=== PATIENT | male | born 1980 | race Caucasian/White ===

== ENCOUNTER 2017-10-13 08:39 | Outpatient (CLI) | payer OTHER ==
--- NOTE | 2017-10-13 11:04 | MRI Report ---
EXAM: MRI BRAIN WITHOUT AND WITH CONTRAST EXAM DATE: 10/13/2017 09:52 AM. CLINICAL HISTORY: Numbness of the right upper lip, face, head, teeth and gums for 3 months. Multiple sclerosis protocol requested. COMPARISON: None. TECHNIQUE: Multiplanar, multisequence T1-weighted and fluid-sensitive MR sequences of the brain were performed. Sequences optimized for white matter evaluation. Other: None. IV Contrast: 10 mL Gadavist. FINDINGS: Brain Volume: Normal for age. Parenchyma: No acute hemorrhage or stroke. No intracranial enhancing or space-occupying mass. Solitary punctate subcortical white matter T2 hyperintensity in the inferior lateral left frontal lob e, this measures about 2 mm in diameter, reference image 8 of series 801. Cerebral white matter other watson has an unremarkable appearance. No focal posterior fossa plaque-like white matter T2 hyperintens ity. No abnormal white matter enhancement. No mass effect, midline shift or abnormal subdural fluid collection. Ventricles/Cisterns: No hydrocephalus. No abnormal extra-axial fluid collection or hemorrhage. Sinuses: Mild pansinus mucosal thickening. No air-fluid level. Small inferior right maxillary sinus r etention cyst. Clear mastoids. Bones: Round 1 cm in diameter nodule of the bone of the upper lateral roof of the right orbit with a thin hypointense sclerotic margin. This nodule is heterogeneously T2 hyperintense centrally and appea rs to enhance. Other: Soft tissue fullness in the nasopharynx, probably adenoid hypertrophy possibly with intermixed retention cyst. IMPRESSION: 1. No acute intracranial abnormality or enhancing mass. 2. Single punctate nonspecific focus of left frontal lobe white matter T2 hyperintensity, intracrania l white matter structures otherwise appear unremarkable. 3. Nonspecific enhancing 1 cm intraosseous nodule in the frontal bone in the right lateral orbital ro of. Thin peripheral hypointensity suggests a sclerotic margin which would imply a nonaggressive or be nign process but this is nonspecific. Additional characterization with focused thin section CT may be helpful for additional evaluation, otherwise MRI could be used in follow-up to determine stability i f no prior imaging is available for comparison. 4. Mild pansinus mucosal thickening. [facility] Referring Provider Line: [phone] SITE ID: [id number]
== END 2017-10-13 08:40 | disposition home or self-care (01) ==
LOC: DI 08:39
DX: R20.2 Paresthesia of skin (principal); M89.9 Disorder of bone, unspecified
CPT/HCPCS: 70553; A9585

== ENCOUNTER 2018-02-06 18:24 | Emergency (ER) | payer OTHER ==
--- NOTE | 2018-02-06 18:39 | ED Physician Documentation ---
PD HPI DYSPNEA - Stated complaint Stated Complaint: SOA/TIGHTCHEST - Chief complaint Chief Complaint: Cardiac - History obtained from History obtained from: Patient - History of Present Illness Timing - onset: How many days ago (several) Timing - onset during: Light activity Timing - duration: Days Timing - details: Gradual onset, Still present, Waxing and waning Inciting event(s): URI (has feeling of general illness with fatigue, cough, aches, stomach pains and diarrhea.) Similar symptoms before: Has not had sx before Recently seen: Not recently seen Review of Systems Constitutional: reports: Fever, Chills Nose: reports: Congestion. denies: Rhinorrhea / runny nose Throat: reports: Sore throat Cardiac: denies: Chest pain / pressure, Palpitations Respiratory: reports: Dyspnea. denies: Wheezing GI: reports: Abdominal Pain (lower abd mostly left), Nausea, Diarrhea (mild). denies: Vomiting, Constipation : denies: Dysuria, Frequency Skin: denies: Rash Musculoskeletal: denies: Neck pain, Back pain Neurologic: reports: Generalized weakness, Near syncope. denies: Focal weakness , Numbness, Syncope PD PAST MEDICAL HISTORY - Past Medical History Cardiovascular: None Respiratory: None Neuro: None GI: Diverticulitis - Present Medications Home Medications: Ambulatory Orders Medication Instructions Recorded Confirmed Amlodipine Besylate/Benazepril 1 each PO 02/06/18 [Lotrel 10-20 mg Capsule] Atenolol 25 mg PO 02/06/18 Citalopram [CeleXA] 40 mg PO DAILY 02/06/18 02/06/18 Gabapentin 600 mg PO 02/06/18 Loperamide [Imodium] 2 mg PO QID PRN #16 capsule 02/06/18 Ondansetron Odt [Zofran] 4 mg TL Q6H PRN #15 tablet 02/06/18 Oxycodone HCl/Acetaminophen 1 each PO 02/06/18 02/06/18 [Percocet 7.5-325 mg Tablet] - Allergies Allergies/Adverse Reactions: Allergies Allergy/AdvReac Type Severity Reaction Status Date / Time No Known Drug Allergies Allergy Verified 02/06/18 18:31 PD ED PE NORMAL - Vitals Vital signs reviewed: Yes - General General: Alert and oriented X 3, Well developed/nourished - HEENT HEENT: Ears normal, Moist mucous membranes, Pharynx benign - Neck Neck: Supple, no meningeal sign, No bony TTP, No adenopathy - Cardiac Cardiac: RRR, No murmur - Respiratory Respiratory: Clear bilaterally - Male Male : Deferred - Back Back: No CVA TTP - Derm Derm: Normal color, Warm and dry, No rash - Extremities Extremities: No deformity, No tenderness to palpate, Normal ROM s pain, No edema , No calf tenderness / cord - Neuro Neuro: Alert and oriented X 3, No motor deficit, Normal speech - Psych Psych: Normal mood, Normal affect Results - Vitals Vitals: Oxygen O2 Source Room air - Labs Labs: Laboratory Tests 02/06/18 02/06/18 02/06/18 18:45 18:45 18:45 WBC 9.8 RBC 4.91 Hgb 14.1 Hct 41.5 L MCV 84.5 MCH 28.7 MCHC 34.0 RDW 13.2 Plt Count 263 MPV 9.2 Neut # (Auto) 6.2 Lymph # (Auto) 2.6 [place] # (Auto) 0.6 Eos # (Auto) 0.3 Baso # (Auto) 0.1 Absolute Nucleated RBC 0.01 Nucleated RBC % 0.1 Sodium 139 Potassium 3.5 Chloride 100 L Carbon Dioxide 27 Anion Gap 12.0 BUN 11 Creatinine 0.9 Estimated GFR (MDRD) 94 Glucose 77 Calcium 9.7 Total Bilirubin 0.7 AST 26 ALT 59 Alkaline Phosphatase 45 Troponin I B-Natriuretic Peptide Total Protein 7.6 Albumin 4.6 Globulin 3.0 Albumin/Globulin Ratio 1.5 Lipase 33 Urine Color YELLOW Urine Clarity HAZY Urine pH 6.5 Ur Specific [place] 1.010 Urine Protein NEGATIVE Urine Glucose (UA) NEGATIVE Urine Ketones NEGATIVE Urine Occult Blood LARGE H Urine Nitrite NEGATIVE Urine Bilirubin NEGATIVE Urine Urobilinogen 0.2 (NORMAL) Ur Leukocyte Esterase NEGATIVE Urine RBC TNTC H Urine WBC 0-3 Ur Squamous Epith Cells NONE SEEN Urine Bacteria None Seen Ur Microscopic Review INDICATED Urine Culture Comments NOT INDICATED Influenza A (Rapid) Influenza B (Rapid) 02/06/18 02/06/18 02/06/18 18:45 18:45 19:20 WBC RBC Hgb Hct MCV MCH MCHC RDW Plt Count MPV Neut # (Auto) Lymph # (Auto) [place] # (Auto) Eos # (Auto) Baso # (Auto) Absolute Nucleated RBC Nucleated RBC % Sodium Potassium Chloride Carbon Dioxide Anion Gap BUN Creatinine Estimated GFR (MDRD) Glucose Calcium Total Bilirubin AST ALT Alkaline Phosphatase Troponin I < 0.04 B-Natriuretic Peptide 86 Total Protein Albumin Globulin Albumin/Globulin Ratio Lipase Urine Color Urine Clarity Urine pH Ur Specific [place] Urine Protein Urine Glucose (UA) Urine Ketones Urine Occult Blood Urine Nitrite Urine Bilirubin Urine Urobilinogen Ur Leukocyte Esterase Urine RBC Urine WBC Ur Squamous Epith Cells Urine Bacteria Ur Microscopic Review Urine Culture Comments Influenza A (Rapid) Negative Influenza B (Rapid) Negative PD MEDICAL DECISION MAKING - ED course Complexity details: reviewed results, re-evaluated patient, considered differential (has pain and tenderness in lower left abd concerning for diverticulitis. He has had that before. ), d/w patient Departure - Departure Disposition: 01 Home, Self Care Clinical Impression: Flu-like symptoms, Abdominal cramping in left lower quadrant Diarrhea Qualifiers: Diarrhea type: presumed infectious Qualified Code(s): R19.7 - Diarrhea, unspecified Condition: Stable Record reviewed to determine appropriate education?: Yes Follow-Up: ROSA ISELA CAM DO [Primary Care Provider] - Prescriptions: Loperamide [Imodium] 2 mg PO QID PRN #16 capsule PRN Reason: Diarrhea Ondansetron Odt [Zofran] 4 mg TL Q6H PRN #15 tablet PRN Reason: Nausea / Vomiting Comments: No focal signs of infection based on urine, CT scan and some blood tests. No signs of heart failure or heart problems based on EKG and some blood tests. It sounds like you have a flulike illness which is still possible and likely even though your flu test is negative. I would use some ondansetron if needed for nausea and Imodium for diarrhea. Tylenol or ibuprofen if needed for pains and aches. Add the hydrocodone if needed for pains tonight into tomorrow. I would anticipate improvement over the next few days. Discharge Date/Time: 02/06/18 21:20
[2018-02-06 18:56] LABS: BASOPHILS # (AUTO) 0.1 10^3/uL (0.0-0.1); BASOPHILS % (AUTO) 0.8 %; BILIRUBIN,URINE NEGATIVE (NEGATIVE); EOSINOPHILS # (AUTO) 0.3 10^3/uL (0.0-0.7); EOSINOPHILS % (AUTO) 3.3 %; GLUCOSE, URINE (UA) NEGATIVE (NEGATIVE); HGB - HEMOGLOBIN 14.1 g/dL (14.0-18.0); KETONES,URINE (UA) NEGATIVE (NEGATIVE); LEUKOCYTE ESTERASE, URINE NEGATIVE (NEGATIVE); LYMPHOCYTES # (AUTO) 2.6 10^3/uL (1.5-3.5); LYMPHOCYTES % (AUTO) 26.7 %; MEAN CORPUSCULAR HEMOGLOBIN 28.7 pg (27.0-31.0); MEAN CORPUSCULAR VOLUME 84.5 fL (80.0-94.0); MEAN PLATELET VOLUME 9.2 fL (7.4-11.4); MONOCYTES # (AUTO) 0.6 10^3/uL (0.0-1.0); MONOCYTES % (AUTO) 6.2 %; NEUTROPHILS # (AUTO) 6.2 10^3/uL (1.5-6.6); NITRITE,URINE NEGATIVE (NEGATIVE); OCCULT BLOOD,URINE LARGE (NEGATIVE); PH,URINE 6.5 PH (5.0-7.5); PLT - PLATELET COUNT 263 10^3/uL (130-450); PROTEIN,URINE NEGATIVE (NEGATIVE); RED BLOOD COUNT 4.91 10^6/uL (4.70-6.10); RED CELL DISTRIBUTION WIDTH 13.2 % (12.0-15.0); UROBILINOGEN,URINE 0.2 (NORMAL) E.U./dL (NORMAL); WHITE BLOOD COUNT 9.8 x10^3/uL (4.8-10.8)
[2018-02-06] MEDS ORDERED: ONDANSETRON 4 MG/2 ML VIAL IVP STA (18:58)
[2018-02-06] MEDS ORDERED: SODIUM CHLORIDE 0.9% 1,000 ML IV ONE ×2 (18:58)
[2018-02-06 18:59] LABS: CLARITY,URINE HAZY (CLEAR)
[2018-02-06 19:09] LABS: ALBUMIN 4.6 g/dL (3.2-5.5); ALBUMIN/GLOBULIN RATIO 1.5 (1.0-2.2); BILIRUBIN,TOTAL 0.7 mg/dL (0.2-1.0); CALCIUM 9.7 mg/dL (8.5-10.3); CREATININE 0.9 mg/dL (0.6-1.2); TOTAL PROTEIN 7.6 g/dL (6.7-8.2)
[2018-02-06 19:11] LABS: BACTERIA,URINE None Seen /HPF (None Seen); RBC,URINE TNTC /HPF (0-5); SQUAMOUS EPITHELIAL CELL,UR NONE SEEN (<= Few)
[2018-02-06] MEDS ORDERED: IOPAMIDOL-300 100 ML VIAL ONE (19:45)
[2018-02-06] MEDS ORDERED: IOPAMIDOL-300 100 ML VIAL IVP ONE (19:55)
--- NOTE | 2018-02-06 20:27 | CT Preliminary Report ---
Exam: CT ABDOMEN/PELVIS W/ IMPRESSION: 1. Normal appendix. 2. Mild colonic diverticulosis. No diverticulitis. No bowel obstruction. 3. Bilateral nonobstructing renal calculi. No obstructing calculi. No bladder calculi. Hydronephrosis . 4. Contracted gallbladder. No biliary ductal dilatation. [facility] SITE ID: [id number]
[2018-02-06] MEDS ORDERED: HYDROcod/ACET 5/325 Prepack 4 PO STA (20:55)
[2018-02-06] MEDS ORDERED: ONDANSETRON ODT 4 MG Prepack 2 TL PRN (20:55)
[2018-02-06] MEDS ORDERED: KETOROLAC 60 MG/2 ML VIAL IVP STA (20:55)
[2018-02-06] MEDS ORDERED: ACETAMINOPHEN 325 MG TABLET PO STA (20:55)
[2018-02-06] MEDS ORDERED: DIPHENOX/ATROPINE 2.5/0.025 MG TABLET PO STA (20:56)
[2018-02-06] MEDS ORDERED: DEXAMETHASONE 10 MG/ML VIAL IVP STA (20:57)
[2018-02-06 21:12] VITALS: BP 161/82
--- NOTE | 2018-02-06 21:19 | CT Report ---
EXAM: CT ABDOMEN AND PELVIS EXAM DATE: 02/06/2018 08:02 PM. CLINICAL HISTORY: Lower left abdominal cramping and diarrhea for days. COMPARISONS: None. TECHNIQUE: Routine helical CT imaging was performed through the abdomen and pelvis. IV contrast: 100M L ISOVUE 300. Enteric contrast: No. Reconstructions: Coronal and sagittal. In accordance with CT protocol optimization, one or more of the following dose reduction techniques w ere utilized for this exam: automated exposure control, adjustment of mA and/or KV based on patient s ize, or use of iterative reconstructive technique. FINDINGS: Lung Bases: Minimal subpleural bibasilar scar/atelectasis. Included portions of the heart is unremark able. Small hiatal hernia. There may be trace pleural effusions. Liver: Normal. No masses. Gallbladder/Bile Ducts: Markedly contracted gallbladder. No biliary ductal dilatation. Spleen: Normal. Pancreas: Normal. Adrenal Glands: Normal. Kidneys: Nonobstructing middle lower pole right renal calculi, the largest measuring 2 mm. Kidneys e nhance symmetrically. Nonobstructing 4 mm left renal calculus also present. No ureteral dilatation. N o ureteral calculi. Peritoneal Cavity/Bowel: Stomach is mildly distended and unremarkable. No small bowel wall thickening or evidence for obstruction. Small fatty umbilical hernia. Diverticula are seen in the colon, largel y the distal colon. No diverticulitis. Small to moderate volumes of stool is seen in the colon. No en larged retroperitoneal or mesenteric lymph nodes. The appendix is well visualized and normal. Pelvic Organs: No bladder calculi. Urinary bladder is mildly distended. Prostate gland and seminal ve sicles are unremarkable. No pelvic adenopathy . No free fluid. Vasculature: No aneurysms or other significant abnormality. Bones: Degenerative changes of the lower thoracic and lumbar spine for lumbar facet arthritis. No acu te osseous abnormalities. Mild degenerative changes of both hip joints. Bilateral L5 pars interarticu ricki defects with grade 1 anterolisthesis of L5 on S1. Other: None. IMPRESSION: 1. Normal appendix. 2. Mild colonic diverticulosis. No diverticulitis. No bowel obstruction. 3. Bilateral nonobstructing renal calculi. No obstructing calculi. No bladder calculi. No hydronephro sis. 4. Contracted gallbladder. No biliary ductal dilatation. [facility] Referring Provider Line: [phone] SITE ID: [id number]
== END 2018-02-06 21:20 | disposition home or self-care (01) ==
LOC: ED 18:24
DX: R50.9 Fever, unspecified (principal); R11.0 Nausea; R09.81 Nasal congestion; J02.9 Acute pharyngitis, unspecified; R06.00 Dyspnea, unspecified; R10.32 Left lower quadrant pain; R19.7 Diarrhea, unspecified
CPT/HCPCS: 36415; 74177; 80053; 81001; 83690; 83880; 84484; 85025; 87275; 87276; 93005; 96361; 96374; 96375; 99283; A9270; Q9967; 81003; 87086

== ENCOUNTER 2018-03-24 14:01 | Emergency (ER) | payer OTHER ==
[2018-03-24] MEDS ORDERED: SODIUM CHLORIDE 0.9% 1,000 ML IV ONE (16:47)
[2018-03-24] MEDS ORDERED: LORazepam 2 MG/ML VIAL IVP STA (16:47)
--- NOTE | 2018-03-24 16:47 | ED Physician Documentation ---
History of Present Illness - Stated complaint Stated Complaint: panick attack - Chief complaint Chief Complaint: General - Additonal information Additional information: 37-year-old male presents the emergency department with reports of anxiety. The patient has a history of ongoing anxiety and currently is on medications but in the past several days his symptoms have not been adequately controlled. No triggering factors. No relieving factors. The patient denies suicidal or homicidal ideations. Patient reports feeling generally weak, jittery and reports feeling palpitations/chest pain. These of the patient's typical symptoms. No other associated symptoms. The patient denies any acute changes in his medications or new fpoj-pce-gyhvaoh therapies. Review of Systems Constitutional: denies: Fever, Chills, Fatigue Eyes: denies: Decreased vision Ears: denies: Ear pain Nose: denies: Congestion Cardiac: reports: Chest pain / pressure, Palpitations Respiratory: denies: Dyspnea GI: denies: Abdominal Pain : denies: Dysuria Skin: denies: Rash Musculoskeletal: denies: Neck pain Neurologic: denies: Generalized weakness, Syncope Psychiatric: reports: Anxiety. denies: Suicidal, Homicidal Immunocompromised: denies: Chemotherapy PD PAST MEDICAL HISTORY - Past Medical History Cardiovascular: None Respiratory: None Neuro: None GI: Diverticulitis : Kidney stones Psych: Anxiety, Obsessive compulsive disorder Musculoskeletal: Chronic back pain - Past Surgical History Past Surgical History: Yes General: Appendectomy, Bowel surgery Ortho: ACL reconstruction - Present Medications Home Medications: Ambulatory Orders Medication Instructions Recorded Confirmed Amlodipine Besylate/Benazepril 1 each PO 02/06/18 [Lotrel 10-20 mg Capsule] Atenolol 25 mg PO 02/06/18 Citalopram [CeleXA] 40 mg PO DAILY 02/06/18 02/06/18 Gabapentin 600 mg PO 02/06/18 - Allergies Allergies/Adverse Reactions: Allergies Allergy/AdvReac Type Severity Reaction Status Date / Time No Known Drug Allergies Allergy Verified 03/24/18 14:10 - Social History Does the pt smoke?: No Smoking Status: Never smoker Does the pt drink ETOH?: No Does the pt have substance abuse?: No PD ED PE NORMAL - General General: Alert and oriented X 3 - HEENT HEENT: Atraumatic, PERRL, EOMI, Ears normal - Neck Neck: Supple, no meningeal sign - Cardiac Cardiac: RRR, No gallop - Respiratory Respiratory: No respiratory distress - Abdomen Abdomen: Normal bowel sounds, Non tender - Derm Derm: Normal color - Extremities Extremities: No deformity, Normal ROM s pain - Neuro Neuro: Alert and oriented X 3, barrel turner 2-12 intact, No motor deficit PD ED PE EXPANDED - Psych Psych: Anxious. No: Suicidal, Homicidal, Tearful, Withdrawn, Poor eye contact, Agitated, Combative, Manic Results - Vitals Vitals: Vital Signs - 24 hr 03/24/18 03/24/18 03/24/18 14:08 17:21 18:22 Temperature 36.3 C L 36.8 C Heart Rate 63 59 L Respiratory 22 16 19 Rate Blood Pressure 166/94 H 158/82 H 163/85 H O2 Saturation 99 96 100 Oxygen O2 Source Room air - EKG (time done) No standard instances Rate: Rate (enter#) (66 bpm) Rhythm: NSR Intervals: Normal LA, Prolonged QT QRS: Normal Ischemia: Normal ST segments - Labs Labs: Laboratory Tests 03/24/18 03/24/18 03/24/18 17:02 17:02 17:02 WBC 7.8 RBC 4.81 Hgb 14.0 Hct 41.9 L MCV 87.1 MCH 29.2 MCHC 33.5 RDW 13.5 Plt Count 255 MPV 9.3 Neut # (Auto) 5.3 Lymph # (Auto) 1.9 [place] # (Auto) 0.4 Eos # (Auto) 0.1 Baso # (Auto) 0.1 Absolute Nucleated RBC 0.00 Nucleated RBC % 0.0 Sodium 138 Potassium 4.3 Chloride 100 L Carbon Dioxide 28 Anion Gap 10.0 BUN 10 Creatinine 0.7 Estimated GFR (MDRD) 126 Glucose 85 Calcium 9.9 Magnesium 2.0 Total Bilirubin 0.7 AST 26 ALT 38 Alkaline Phosphatase 52 Troponin I < 0.04 Total Protein 7.4 Albumin 4.5 Globulin 2.9 Albumin/Globulin Ratio 1.6 Lipase 24 TSH 03/24/18 17:02 WBC RBC Hgb Hct MCV MCH MCHC RDW Plt Count MPV Neut # (Auto) Lymph # (Auto) [place] # (Auto) Eos # (Auto) Baso # (Auto) Absolute Nucleated RBC Nucleated RBC % Sodium Potassium Chloride Carbon Dioxide Anion Gap BUN Creatinine Estimated GFR (MDRD) Glucose Calcium Magnesium Total Bilirubin AST ALT Alkaline Phosphatase Troponin I Total Protein Albumin Globulin Albumin/Globulin Ratio Lipase TSH 1.15 PD MEDICAL DECISION MAKING - ED course ED course: The patient's workup does not reveal an acute medical cause for his symptoms. The patient appears appropriate for discharge home since he has no suicidal or homicidal ideations. The patient will follow up with his primary care physician for ongoing management of his anxiety. I discussed warning signs for decompensation and recommended returning to the emergency department immediately for worsening or any concerns. - Sepsis Event Vital Signs: Vital Signs - 24 hr 03/24/18 03/24/18 03/24/18 14:08 17:21 18:22 Temperature 36.3 C L 36.8 C Heart Rate 63 59 L Respiratory 22 16 19 Rate Blood Pressure 166/94 H 158/82 H 163/85 H O2 Saturation 99 96 100 Oxygen O2 Source Room air Departure - Departure Disposition: 01 Home, Self Care Clinical Impression: Anxiety Condition: Good Instructions: ED Anxiety Reaction Ch Follow-Up: ROSA ISELA CAM DO [Primary Care Provider] - Within 3 Days Comments: Please return for worsening symptoms or new concerns Discharge Date/Time: 03/24/18 18:28
[2018-03-24 17:21] LABS: BASOPHILS # (AUTO) 0.1 10^3/uL (0.0-0.1); BASOPHILS % (AUTO) 0.7 %; EOSINOPHILS # (AUTO) 0.1 10^3/uL (0.0-0.7); EOSINOPHILS % (AUTO) 1.9 %; LYMPHOCYTES # (AUTO) 1.9 10^3/uL (1.5-3.5); LYMPHOCYTES % (AUTO) 24.6 %; MEAN CORPUSCULAR HEMOGLOBIN 29.2 pg (27.0-31.0); MEAN CORPUSCULAR HGB CONC 33.5 g/dL (32.0-36.0); MEAN CORPUSCULAR VOLUME 87.1 fL (80.0-94.0); MEAN PLATELET VOLUME 9.3 fL (7.4-11.4); MONOCYTES # (AUTO) 0.4 10^3/uL (0.0-1.0); MONOCYTES % (AUTO) 4.8 %; NEUTROPHILS # (AUTO) 5.3 10^3/uL (1.5-6.6); PLT - PLATELET COUNT 255 10^3/uL (130-450); RED BLOOD COUNT 4.81 10^6/uL (4.70-6.10); RED CELL DISTRIBUTION WIDTH 13.5 % (12.0-15.0); WHITE BLOOD COUNT 7.8 x10^3/uL (4.8-10.8)
[2018-03-24 17:34] LABS: ALBUMIN 4.5 g/dL (3.2-5.5); ALBUMIN/GLOBULIN RATIO 1.6 (1.0-2.2); BILIRUBIN,TOTAL 0.7 mg/dL (0.2-1.0); CALCIUM 9.9 mg/dL (8.5-10.3); CREATININE 0.7 mg/dL (0.6-1.2); TOTAL PROTEIN 7.4 g/dL (6.7-8.2)
[2018-03-24] MEDS ORDERED: diazePAM 5 MG TABLET PO STA (18:10)
[2018-03-24 18:23] VITALS: BP 163/85
== END 2018-03-24 18:28 | disposition home or self-care (01) ==
LOC: ED 14:01
DX: F41.9 Anxiety disorder, unspecified (principal)
CPT/HCPCS: 36415; 80053; 83690; 83735; 84443; 84484; 85025; 93005; 96361; 96374; 99283; A9270; J2060

== ENCOUNTER 2018-11-01 09:59 | Emergency (ER) | payer OTHER ==
[2018-11-01] MEDS ORDERED: HYDROmorphone 1 MG/ML CARPUJECT IM STA (12:24)
--- NOTE | 2018-11-01 12:26 | ED Physician Documentation ---
PD HPI BACK PAIN - Stated complaint Stated Complaint: GLF/BACK PAIN - Chief complaint Chief Complaint: Back Pain - History obtained from History obtained from: Patient - History of Present Illness Timing - onset: Today (This is a 38-year-old gentleman with chronic back pain who receives an occasional prescription from his physician for Percocet. He slipped and fell the day and tweaks his back. Pain is in the same place as usual, mid to lower back and radiating to the right buttock without new sensory or motor weakness. No saddle anesthesia. He chronically has some sensory weakness in the right leg from a saphenous knee vein nerve graft.) Review of Systems Constitutional: denies: Fever, Chills Throat: denies: Dental pain / toothache, Sore throat Cardiac: denies: Chest pain / pressure, Palpitations Respiratory: denies: Dyspnea, Cough PD PAST MEDICAL HISTORY - Past Medical History Past Medical History: No Cardiovascular: None Respiratory: None Neuro: None GI: Diverticulitis : Kidney stones Psych: Anxiety, Obsessive compulsive disorder Musculoskeletal: Chronic back pain - Past Surgical History Past Surgical History: Yes General: Appendectomy, Bowel surgery Ortho: ACL reconstruction - Present Medications Home Medications: Ambulatory Orders Medication Instructions Recorded Confirmed Amlodipine Besylate/Benazepril 1 each PO 02/06/18 [Lotrel 10-20 mg Capsule] Atenolol 25 mg PO 02/06/18 Citalopram [CeleXA] 40 mg PO DAILY 02/06/18 02/06/18 Gabapentin 600 mg PO 02/06/18 Oxycodone HCl/Acetaminophen 1 each PO Q6H PRN #15 tablet 11/01/18 [Percocet 10-325 mg Tablet] - Allergies Allergies/Adverse Reactions: Allergies Allergy/AdvReac Type Severity Reaction Status Date / Time No Known Drug Allergies Allergy Verified 03/24/18 14:10 - Social History Does the pt smoke?: No Smoking Status: Never smoker Does the pt drink ETOH?: No Does the pt have substance abuse?: No PD ED PE NORMAL - Vitals Vital signs reviewed: Yes - General General: Alert and oriented X 3, Other (He winces with motion but is comfortable at rest) - Back Back: No spinal TTP - Extremities Extremities: Other (With the exception of some numbness on the lateral side of the lower right leg, he has intact sensation throughout the leg, normal flexion and extension at both ankles and knees, and equal and symmetric and normal patellar and Achilles reflexes.) - Neuro Neuro: Alert and oriented X 3, Normal speech Results - Vitals Vitals: Vital Signs - 24 hr 11/01/18 10:31 Temperature 36.5 C Heart Rate 61 Respiratory 16 Rate Blood Pressure 138/72 H O2 Saturation 100 Oxygen O2 Source Room air Departure - Departure Disposition: 01 Home, Self Care Clinical Impression: Back pain Qualifiers: Back pain location: low back pain Chronicity: acute Back pain laterality: right Sciatica presence: without sciatica Qualified Code(s): M54.5 - Low back pain Condition: Good Record reviewed to determine appropriate education?: Yes Instructions: ED Low Back Pain Injury Prescriptions: Oxycodone HCl/Acetaminophen [Percocet 10-325 mg Tablet] 1 each PO Q6H PRN #15 tablet PRN Reason: Pain Comments: Call your doctor to arrange a follow-up appointment, make the next available appointment. In the interim, return anytime if worse or if new symptoms develop. Do not drink or drive while taking narcotic pain medication. Note that many narcotic pain relievers also contain Tylenol/acetaminophen. Please ensure that your total dose of acetaminophen from all sources does not exceed 3 g (3000 mg) per day. You may get constipated while on this medication. Take a stool softener such as Colace twice a day while you are on it. Also add an uflu-hhh-jcyztej laxative such as senna or MiraLAX on any day that you do not have a bowel movement. If you received a narcotic pain medication or sedative while in the emergency department, do not drive for the next 24 hours. Your blood pressure was elevated today on check into the emergency department. This does not mean that you have hypertension, it is a common phenomenon to come to the emergency department and have elevated blood pressure. I recommend that you see your primary care physician within the week to have it rechecked when you are feeling better. Forms: Activity restrictions
[2018-11-01 12:45] VITALS: BP 130/72
== END 2018-11-01 12:44 | disposition home or self-care (01) ==
LOC: ED 09:59
DX: M54.5 Low back pain (principal); G89.29 Other chronic pain; W01.0XXA Fall on same level from slipping, tripping and stumbling without subsequent striking against object, initial encounter; Y99.0 Civilian activity done for income or pay
CPT/HCPCS: 1040M; 96372; 99283; J1170

== ENCOUNTER 2018-12-10 09:34 | Outpatient (CLI) | payer OTHER ==
--- NOTE | 2018-12-10 14:56 | MRI Report ---
Reason: LOW BACK PAIN Procedure Date: 12/10/2018 Accession Number: [id number] / [id number] Procedure: MRI - Lumbar Spine W/O CPT Code: FULL RESULT: EXAM: MRI LUMBAR SPINE WITHOUT CONTRAST EXAM DATE: 12/10/2018 10:29 AM. CLINICAL HISTORY: Low back pain. Severe low back pain. Bilateral leg weakness. Fall 11/01/2018 COMPARISON: ABDOMEN/PELVIS W/ 02/06/2018 7:55 PM. TECHNIQUE: Multiplanar, multisequence T1-weighted and fluid-sensitive sequences of the lumbar spine from T12 to S1 without contrast. Other: None. FINDINGS: Spinal Canal: The conus terminates at L1. The conus medullaris and cauda equina are unremarkable. The spinal canal is adequate. 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 No distraction is seen at the pars interarticularis defects. No associated bone marrow or paraspinous edema. Minimal, 2 mm, spondylolisthesis is seen at L5-S1. Bone Marrow: Five cyi-lfq-xlwmudj lumbar vertebral bodies are assumed. No acute fractures or bone lesions. No bone marrow replacement. Disk Levels/Facets: T11-T12: Unremarkable. Minimal right dorsolateral with mild right lateral disk protrusion is seen. Right lateral diskogenic endplate irregularity and small Schmorl's node formation is seen. No stenosis. T12-L1: Unremarkable. L1-L2: Unremarkable. L2-L3: Unremarkable. L3-L4: Unremarkable. Minimal loss of disk space height. Minimal dorsal with mild lateral and ventral circumferential disk bulge. Right anterolateral protrusion of disk/osteophyte complex. No stenosis. L4-L5: Unremarkable. L5-S1: Unremarkable. T2 hypointense disk signal is seen. Dorsal annular fissure is noted. No stenosis. Musculature: Normal. No edema or fatty atrophy. Other: The partially visualized retroperitoneum is unremarkable. IMPRESSION: 1. No canal, lateral recess or foraminal stenosis. 2. 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 Minimal spondylolisthesis is seen. Dorsal annular fissure is noted. 3. L3-L4: Minimal degenerative disk change. 4. T11-T12: Mild degenerative disk change. Minimal right dorsolateral with mild right lateral disk protrusion. Comment: The following findings are so common in adults without low back pain that while we report their presence, they must be interpreted with caution and in the context of the clinical situation. (Reference Noah et al, Spine 2001) Prevalence of findings in patients without low back pain: Disk degeneration (any evidence): 92% Disk desiccation/T2 signal loss: 83% Disk height loss: 56% Disk bulge: 64% Disk protrusion: 32% Annular tear/high intensity zone: 38% [facility]
== END 2018-12-10 09:35 | disposition home or self-care (01) ==
LOC: DI 09:34
PROVIDERS: ATTEND Family Medicine
DX: M43.06 Spondylolysis, lumbar region (principal); M51.36 Other intervertebral disc degeneration, lumbar region; M51.34 Other intervertebral disc degeneration, thoracic region; M51.24 Other intervertebral disc displacement, thoracic region
CPT/HCPCS: 72148

== ENCOUNTER 2019-01-04 15:12 | Emergency (ER) | payer OTHER ==
--- NOTE | 2019-01-04 15:25 | ED Physician Documentation ---
PD HPI BACK INJURY - Stated complaint Stated Complaint: LOWER BACK PAIN - History obtained from History obtained from: Patient - History of Present Illness Location: Lower Type of injury: Twist (had back injury in Oct and has PT and meds. Went back to work this week and hurting more with bending and twisting.) Timing - details: Abrupt onset, Still present (worse with movements back at work this week.), Waxing and waning Quality: Pain, Spasm Worsened by: Moving Review of Systems Constitutional: denies: Fever, Chills, Myalgias Nose: denies: Rhinorrhea / runny nose, Congestion Throat: denies: Sore throat Respiratory: denies: Cough GI: denies: Vomiting, Diarrhea : denies: Incontinent Skin: denies: Rash, Lesions Neurologic: denies: Focal weakness, Numbness PD PAST MEDICAL HISTORY - Past Medical History Cardiovascular: None Respiratory: None Neuro: None GI: Diverticulitis : Kidney stones Psych: Anxiety, Obsessive compulsive disorder Musculoskeletal: Chronic back pain - Past Surgical History Past Surgical History: Yes General: Appendectomy, Bowel surgery Ortho: ACL reconstruction - Present Medications Home Medications: Ambulatory Orders Medication Instructions Recorded Confirmed Amlodipine Besylate/Benazepril 1 each PO 02/06/18 [Lotrel 10-20 mg Capsule] Atenolol 25 mg PO 02/06/18 Gabapentin 600 mg PO 02/06/18 Oxycodone HCl/Acetaminophen 1 each PO Q6H PRN #15 tablet 11/01/18 [Percocet 10-325 mg Tablet] Cyclobenzaprine [Flexeril] 10 mg PO 01/04/19 01/04/19 Hydrocodone/Acetaminophen [[place] 1 each PO Q6H PRN #25 tablet 01/04/19 10-325 Tablet] diazePAM [Valium] 5 - 10 mg PO TID PRN #15 tablet 01/04/19 - Allergies Allergies/Adverse Reactions: Allergies Allergy/AdvReac Type Severity Reaction Status Date / Time No Known Drug Allergies Allergy Verified 01/04/19 15:20 - Social History Does the pt smoke?: No Smoking Status: Never smoker Does the pt drink ETOH?: No Does the pt have substance abuse?: No PD ED PE NORMAL - Vitals Vital signs reviewed: Yes - General General: Alert and oriented X 3, Well developed/nourished, Other (considerable discomfort and having to move at times to find comfort. somewhat guarding ROM.) - Abdomen Abdomen: Soft, Non tender - Back Back: No CVA TTP, No spinal TTP (tender in lower back muscles and not really midline. ) - Derm Derm: Normal color, Warm and dry - Neuro Neuro: Alert and oriented X 3, No motor deficit, No sensory deficit, Normal speech Results - Vitals Vitals: Vital Signs - 24 hr 01/04/19 01/04/19 15:18 16:46 Temperature 37.2 C Heart Rate 82 78 Respiratory 20 18 Rate Blood Pressure 130/104 H 137/78 H O2 Saturation 100 99 Oxygen O2 Source Room air PD MEDICAL DECISION MAKING - ED course Complexity details: reviewed old records, re-evaluated patient (improved pain after meds here in ED, down to baseline level), considered differential (seems worsening of chronic back pain without red flags to suggest need for testing. ), d/w patient Departure - Departure Disposition: Home, Self Care Clinical Impression: Acute exacerbation of chronic low back pain Condition: Stable Record reviewed to determine appropriate education?: Yes Instructions: ED Low Back Pain Injury Follow-Up: ROSA ISELA CAM DO [Primary Care Provider] - Prescriptions: diazePAM [Valium] 5 - 10 mg PO TID PRN #15 tablet PRN Reason: Spasms Hydrocodone/Acetaminophen [[place] 10-325 Tablet] 1 each PO Q6H PRN #25 tablet PRN Reason: Pain Comments: Gentle range of motion. Heat and stretching are good. Add Decadron anti- inflammatory to your current Celebrex. You can use diazepam (Valium) as a muscle relaxant in the short-term instead of the methocarbamol to see if it works a little better for now. Hydrocodone as directed as needed for pain. Follow-up with your primary care next Thursday as scheduled. Return as needed. Discharge Date/Time: 01/04/19 16:46
[2019-01-04] MEDS ORDERED: KETOROLAC 30 MG/ML VIAL IM STA (15:44)
[2019-01-04] MEDS ORDERED: HYDROmorphone 1 MG/ML CARPUJECT IM STA (15:44)
[2019-01-04] MEDS ORDERED: CHERRY SYRUP 10 ML UDC PO ONE (15:44)
[2019-01-04] MEDS ORDERED: DEXAMETHASONE 10 MG/ML VIAL PO STA (15:44)
[2019-01-04 16:47] VITALS: BP 137/78
== END 2019-01-04 16:46 | disposition home or self-care (01) ==
LOC: ED 15:12
DX: S39.92XA Unspecified injury of lower back, initial encounter (principal); X50.1XXA Overexertion from prolonged static or awkward postures, initial encounter; Y99.0 Civilian activity done for income or pay; M54.5 Low back pain; G89.29 Other chronic pain
CPT/HCPCS: 96372; 99283; A9270; J1170

== ENCOUNTER 2019-01-17 13:45 | Emergency (ER) | payer OTHER ==
[2019-01-17 14:08] VITALS: BP 142/72
--- NOTE | 2019-01-17 14:37 | ED Physician Documentation ---
PD HPI BACK PAIN - Stated complaint Stated Complaint: BACK PX - Chief complaint Chief Complaint: Back Pain - History obtained from History obtained from: Patient - History of Present Illness Timing - onset: Today (He has chronic back pain. Went to a pain clinic today who supposedly referred him to the ED b/c pain was too high today for them to treat him. Spasm like pain. Had MRI 4/5 of L Spine "no canal lateral recess or foraminal stenosis, Bilateral L5 spondylolysis"... other minimal to mild DDD.) Review of Systems Constitutional: reports: Reviewed and negative Ears: reports: Reviewed and negative Throat: reports: Reviewed and negative Cardiac: reports: Reviewed and negative PD PAST MEDICAL HISTORY - Past Medical History Cardiovascular: None Respiratory: None Neuro: None GI: Diverticulitis : Kidney stones Psych: Anxiety, Obsessive compulsive disorder Musculoskeletal: Chronic back pain - Past Surgical History Past Surgical History: Yes General: Appendectomy, Bowel surgery Ortho: ACL reconstruction - Present Medications Home Medications: Ambulatory Orders Medication Instructions Recorded Confirmed Amlodipine Besylate/Benazepril 1 each PO 02/06/18 [Lotrel 10-20 mg Capsule] Atenolol 25 mg PO 02/06/18 Gabapentin 600 mg PO 02/06/18 Oxycodone HCl/Acetaminophen 1 each PO Q6H PRN #15 tablet 11/01/18 [Percocet 10-325 mg Tablet] Cyclobenzaprine [Flexeril] 10 mg PO 01/04/19 01/04/19 Hydrocodone/Acetaminophen [[place] 1 each PO Q6H PRN #25 tablet 01/04/19 10-325 Tablet] diazePAM [Valium] 5 - 10 mg PO TID PRN #15 tablet 01/04/19 Oxycodone HCl/Acetaminophen 1 - 2 each PO Q6H PRN #20 tablet 01/17/19 [Percocet 5-325 mg Tablet] - Allergies Allergies/Adverse Reactions: Allergies Allergy/AdvReac Type Severity Reaction Status Date / Time No Known Drug Allergies Allergy Verified 01/17/19 14:08 - Social History Does the pt smoke?: No Smoking Status: Never smoker Does the pt drink ETOH?: No Does the pt have substance abuse?: No PD ED PE NORMAL - Vitals Vital signs reviewed: Yes - General General: Alert and oriented X 3, Other (uncomfortable) - Respiratory Respiratory: No respiratory distress, Clear bilaterally - Abdomen Abdomen: Normal bowel sounds, Soft, Non tender - Back Back: No CVA TTP, No spinal TTP - Extremities Extremities: Other (The patient has equal and normal Achilles and patellar reflexes bilaterally. Normal sensation in all areas of the legs. Patient denies saddle anesthesia. Normal strength in flexion-extension at the ankles, knees, and flexion of the hips.) - Psych Psych: Normal mood, Normal affect Results - Vitals Vitals: Vital Signs - 24 hr 01/17/19 14:03 Temperature 37.7 C H Heart Rate 95 Respiratory 14 Rate Blood Pressure 142/72 H O2 Saturation 100 Oxygen O2 Source Room air PD MEDICAL DECISION MAKING - ED course ED course: 38-year-old gentleman with chronic back pain presents after seeing a spine surgeon today. It sounds like they offered him nothing which after looking at the MRI I do not think an interventional approach would be helpful but it sounds like this was not communicated to him well. I offered some pain medications but discussed that this is his third prescription already this year from this department and further prescriptions need to come from PCP or pain management. Departure - Departure Disposition: 01 Home, Self Care Clinical Impression: Sciatica Qualifiers: Laterality: left Qualified Code(s): M54.32 - Sciatica, left side Condition: Good Record reviewed to determine appropriate education?: Yes Instructions: ED Low Back Pain Injury Prescriptions: Oxycodone HCl/Acetaminophen [Percocet 5-325 mg Tablet] 1 - 2 each PO Q6H PRN #20 tablet PRN Reason: pain Comments: The policy of this emergency department is to not give more than 3 prescriptions for narcotics or other controlled substances in any 1 year. You have already surpassed this benchmark and we cannot prescribe narcotics for you. I encourage you to follow up with your primary care physician or to establish care with a primary care physician for ongoing pain management. You are always welcome to seek emergency care here for this or new issues but there will likely be limitations in the prescription of narcotic pain medication.
[2019-01-17] MEDS ORDERED: oxyCODONE 5 MG TABLET PO STA (14:48)
[2019-01-17] MEDS ORDERED: CHERRY SYRUP 10 ML UDC PO ONE (15:04)
[2019-01-17] MEDS ORDERED: KETOROLAC 60 MG/2 ML VIAL IM STA (15:04)
[2019-01-17] MEDS ORDERED: DEXAMETHASONE 10 MG/ML VIAL PO STA (15:04)
== END 2019-01-17 15:20 | disposition home or self-care (01) ==
LOC: ED 13:45
DX: M54.32 Sciatica, left side (principal); M54.9 Dorsalgia, unspecified; G89.29 Other chronic pain
CPT/HCPCS: 96372; 99283; A9270

== ENCOUNTER 2019-04-10 08:19 | Emergency (ER) | payer OTHER ==
--- NOTE | 2019-04-10 08:41 | ED Physician Documentation ---
History of Present Illness - Stated complaint Stated Complaint: MALE - Chief complaint Chief Complaint: Wound - Additonal information Additional information: This is a 38-year-old male with a history of hypertension who presents with a painful area of swelling in between his buttocks that began in the last week and has been worsening since Thursday. Patient states that he began developing a sore spot in the absence of any trauma or known inciting event. This is been gradually increasing over the last several days, then on Thursday he states that it became much more inflamed. Yesterday his pain level increased greatly, and he has been unable to sit down or sleep comfortably. He is never had an abscess before, denies any abdominal surgeries, denies any pus or blood in his stool. When he has a bowel movement now he does have some pain in the region. The pain is severe, 10 out of 10 with movement or pressure. He denies fever or chills, otherwise feels well. Review of Systems Constitutional: denies: Fever Nose: denies: Congestion Throat: denies: Oral lesions / sores Cardiac: denies: Chest pain / pressure Respiratory: denies: Dyspnea GI: denies: Abdominal Pain : denies: Dysuria Skin: reports: Other (Abscess) PD PAST MEDICAL HISTORY - Past Medical History Cardiovascular: Hypertension Respiratory: None Neuro: None GI: Diverticulitis : Kidney stones Psych: Anxiety, Obsessive compulsive disorder Musculoskeletal: Chronic back pain - Past Surgical History Past Surgical History: Yes General: Appendectomy, Bowel surgery Ortho: ACL reconstruction - Present Medications Home Medications: Ambulatory Orders Medication Instructions Recorded Confirmed Amlodipine Besylate/Benazepril 1 each PO 02/06/18 [Lotrel 10-20 mg Capsule] RX: Atenolol 25 mg PO 02/06/18 RX: Gabapentin 600 mg PO 02/06/18 Oxycodone HCl/Acetaminophen 1 each PO Q6H PRN #15 tablet 11/01/18 [Percocet 10-325 mg Tablet] Cyclobenzaprine [Flexeril] 10 mg PO 01/04/19 01/04/19 Hydrocodone/Acetaminophen [[place] 1 each PO Q6H PRN #25 tablet 01/04/19 10-325 Tablet] diazePAM [Valium] 5 - 10 mg PO TID PRN #15 tablet 01/04/19 Oxycodone HCl/Acetaminophen 1 - 2 each PO Q6H PRN #20 tablet 01/17/19 [Percocet 5-325 mg Tablet] Cephalexin [Keflex] 500 mg PO Q6H #40 capsule 04/10/19 Oxycodone HCl/Acetaminophen 1 - 2 each PO Q6H PRN #7 tablet 04/10/19 [Percocet 5-325 mg Tablet] Polyethylene Glycol 3350 [Miralax] 17 gm PO DAILY PRN #1 bottle 04/10/19 Sulfamethox/Trimeth 800/160 1 each PO BID #20 tablet 04/10/19 [Bactrim Ds 800/160] - Allergies Allergies/Adverse Reactions: Allergies Allergy/AdvReac Type Severity Reaction Status Date / Time No Known Drug Allergies Allergy Verified 04/10/19 08:31 - Social History Does the pt smoke?: No Smoking Status: Never smoker Does the pt drink ETOH?: No Does the pt have substance abuse?: No PD ED PE NORMAL - Vitals Vital signs reviewed: Yes - General General: Alert and oriented X 3 - HEENT HEENT: PERRL - Cardiac Cardiac: RRR, No murmur - Respiratory Respiratory: Clear bilaterally - Abdomen Abdomen: Soft, Non tender - Rectal Rectal: Other (There is a 2 cm long by 1.5 cm wide area of erythema and fluctuance 4 cm superior to the anus. There is obvious fluctuance and a pustule is visible. The area is exquisitely tender to palpation.) - Derm Derm: Warm and dry - Extremities Extremities: No deformity - Neuro Neuro: Alert and oriented X 3 - Psych Psych: Normal mood, Normal affect Results - Vitals Vitals: Vital Signs - 24 hr 04/10/19 04/10/19 08:28 11:41 Temperature 36.7 C Heart Rate 65 84 Respiratory 14 18 Rate Blood Pressure 142/102 H 136/68 H O2 Saturation 97 100 Oxygen O2 Source Room air - Labs Labs: Laboratory Tests 04/10/19 04/10/19 10:00 10:00 WBC 9.3 RBC 4.25 L Hgb 12.4 L Hct 38.2 L MCV 89.9 MCH 29.2 MCHC 32.5 RDW 12.9 Plt Count 254 MPV 10.2 Neut # (Auto) 6.8 H Lymph # (Auto) 1.4 L [place] # (Auto) 0.7 Eos # (Auto) 0.3 Baso # (Auto) 0.1 Absolute Nucleated RBC 0.00 Nucleated RBC % 0.0 Sodium 140 Potassium 4.5 Chloride 107 Carbon Dioxide 22 Anion Gap 11.0 BUN 18 Creatinine 0.8 Estimated GFR (MDRD) 107 Glucose 104 H Calcium 9.7 - Rads (name of study) CT Radiology: Final report received (Na-rectal abscess without obvious signs of fistula) Procedures - Abscess I&D (location) Buttocks Preparation: Chlorhexadine, Lidocaine 1% Incision: Incised with scalpel, Purulent drainage, Loculations broken, Packed Other: Pt tolerated well, Dressing applied, Antibiotic prescribed PD MEDICAL DECISION MAKING - ED course Complexity details: considered differential (Abscess, fistula, cellulitis, folliculitis, thrombosed hemorrhoid) ED course: On exam patient is uncomfortable but nontoxic-appearing, vital signs show no tachycardia or fever. Patient does have an area of fluctuance and erythema just superior to his anus. This appears to be an abscess that is occurred in the absence of any trauma or inciting events. Patient was given 10 mg of oxycodone, 650 mg of Tylenol, as well as 30mg toradol IM for pain control. He required additional dose of morphine for pain control. I attempted a bedside ultrasound however patient had too much tenderness, CT was performed to assess for signs of fistula, this showed a 3 x 4 cm abscess near the surface of the skin, without obvious signs of fistula or pelvic extension. CBC is unremarkable with no leukocytosis, vital signs are unremarkable without fever or tachycardia. I disc ussed this with the patient, and he agreed to incision and drainage after we discussed the risks and benefits. After incision and drainage patient had some significant relief of the pressure in his buttocks. I prescribed him Bactrim and Keflex and given instructions to finish the entire course of antibiotics. He does have a piece of packing in the abscess cavity, he will remove this in 3 days if it does not follow-up sooner. I reviewed wound care instructions and instructed to follow-up with his primary care provider, he has an appointment already this week. Return precautions were discussed and patient was discharged home in good condition. I did prescribe him a small number of oxycodone for pain with instructions and precautions discussed. Departure - Departure Disposition: 01 Home, Self Care Clinical Impression: Abscess Condition: Good Instructions: ED Abscess IandD Follow-Up: CAM,ROSA ISELA M, [Primary Care Provider] - Within 1 week (For follow up and wound check) Prescriptions: Cephalexin [Keflex] 500 mg PO Q6H #40 capsule Oxycodone HCl/Acetaminophen [Percocet 5-325 mg Tablet] 1 - 2 each PO Q6H PRN #7 tablet PRN Reason: pain Polyethylene Glycol 3350 [Miralax] 17 gm PO DAILY PRN #1 bottle PRN Reason: Constipation Sulfamethox/Trimeth 800/160 [Bactrim Ds 800/160] 1 each PO BID #20 tablet Comments: You were seen for an abscess. Please take antibiotics as prescribed. Follow-up with your primary care provider for wound check. If you have worsening symptoms such as fever or recurrence of her abscess return to the emergency department. Discharge Date/Time: 04/10/19 12:58
[2019-04-10] MEDS ORDERED: LIDOCAINE 1%-EPI 1:100000 20 ML MDV SUBQ STA (08:55)
[2019-04-10] MEDS ORDERED: oxyCODONE 5 MG TABLET PO STA ×2 (08:56→09:13)
[2019-04-10] MEDS ORDERED: ACETAMINOPHEN 325 MG TABLET PO STA (08:56)
[2019-04-10] MEDS ORDERED: KETOROLAC 30 MG/ML VIAL IM STA (09:13)
[2019-04-10] MEDS: MORPHINE 2 MG/ML CARPUJECT IVP STA ×2 (09:59→11:36)
[2019-04-10 10:07] LABS: BASOPHILS # (AUTO) 0.1 10^3/uL (0.0-0.1); BASOPHILS % (AUTO) 0.5 %; EOSINOPHILS # (AUTO) 0.3 10^3/uL (0.0-0.7); EOSINOPHILS % (AUTO) 3.2 %; HGB - HEMOGLOBIN 12.4 g/dL (14.0-18.0); LYMPHOCYTES # (AUTO) 1.4 10^3/uL (1.5-3.5); LYMPHOCYTES % (AUTO) 14.9 %; MEAN CORPUSCULAR HEMOGLOBIN 29.2 pg (27.0-31.0); MEAN CORPUSCULAR HGB CONC 32.5 g/dL (32.0-36.0); MEAN CORPUSCULAR VOLUME 89.9 fL (80.0-94.0); MEAN PLATELET VOLUME 10.2 fL (7.4-11.4); MONOCYTES # (AUTO) 0.7 10^3/uL (0.0-1.0); MONOCYTES % (AUTO) 7.2 %; NEUTROPHILS # (AUTO) 6.8 10^3/uL (1.5-6.6); NEUTROPHILS % (AUTO) 73.2 %; PLT - PLATELET COUNT 254 10^3/uL (130-450); RED BLOOD COUNT 4.25 10^6/uL (4.70-6.10); RED CELL DISTRIBUTION WIDTH 12.9 % (12.0-15.0); WHITE BLOOD COUNT 9.3 x10^3/uL (4.8-10.8)
[2019-04-10 10:16] LABS: CALCIUM 9.7 mg/dL (8.5-10.3); CREATININE 0.8 mg/dL (0.6-1.2)
[2019-04-10] MEDS ORDERED: IOVERSOL 320 100 ML VIAL IVP ONE (10:26)
--- NOTE | 2019-04-10 11:29 | CT Report ---
Reason: Na-rectal abscess, please assess for fistula Procedure Date: 04/10/2019 Accession Number: [id number] / [id number] Procedure: CT - PELVIS W CPT Code: FULL RESULT: EXAM: CT PELVIS EXAM DATE: 04/10/2019 10:50 AM. CLINICAL HISTORY: Na-rectal abscess, please assess for fistula. COMPARISONS: ABDOMEN/PELVIS W/ 02/06/2018 7:55 PM. TECHNIQUE: Routine helical CT imaging was performed through the pelvis. IV contrast: 90 cc Optiray 320. Enteric contrast: No. Reconstructions: Coronal and sagittal. In accordance with CT protocol optimization, one or more of the following dose reduction techniques were utilized for this exam: automated exposure control, adjustment of mA and/or KV based on patient size, or use of iterative reconstructive technique. FINDINGS: Visualized Abdominal Organs: Normal. Peritoneal Cavity/Bowel: There is a rim-enhancing ovoid fluid collection in the left posterior perianal region. This measures 3.4 x 2.0 x 2.2 cm (series 3 image 47, and series 6 image 38). The fluid collection is within 5 mm of the skin surface. There is adjacent fat stranding and skin thickening. There is no extension superiorly into the pelvis. No free fluid, free air or adenopathy. No masses. The appendix is well visualized and normal. Pelvic Organs: The bladder, rectum, and visualized pelvic organs are within normal limits. Vasculature: No aneurysms or other significant abnormality. Bones: No acute osseous abnormality. 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 Other: None. IMPRESSION: There is a left posterior perianal abscess measuring up to 3.4 cm in diameter. The fluid collection is within 5 mm of the skin surface. There is no extension superiorly into the pelvis. Although no fistula is visualized, a fistulous tract may not be apparent on CT. If clinically indicated, MRI is more sensitive for detection of perianal fistulas. [facility]
[2019-04-10] MEDS ORDERED: MORPHINE 2 MG/ML CARPUJECT IVP STA (11:32)
[2019-04-10 11:42] VITALS: BP 136/68
== END 2019-04-10 12:58 | disposition home or self-care (01) ==
LOC: ED 08:19
DX: K61.0 Anal abscess (principal); I10 Essential (primary) hypertension
CPT/HCPCS: 10060; 36415; 72193; 80048; 85025; 96372; 96374; 99284; A9270; Q9967

== ENCOUNTER 2019-07-18 16:49 | Emergency (ER) | payer OTHER ==
--- NOTE | 2019-07-18 17:06 | ED Physician Documentation ---
PD HPI CHEST PAIN - Stated complaint Stated Complaint: RAPID HEART BEAT, BP, LIGHTHEADED, CHEST TIGHTNESS - Chief complaint Chief Complaint: Cardiac - History obtained from History obtained from: Patient - History of Present Illness Timing - onset: How many hours ago (2), Today Timing - onset during: Rest Timing - duration: Hours (2) Timing - details: Abrupt onset, Still present, Waxing and waning. No: Intermittant Quality: Tightness, Other (feeling like heart is racing, anxious, with some dyspnea. Has had anxiety in the past. No history of irregular heart rate. Had right great toe pain for few days and seen yesterday with Rx of Prednisone 50 mg daily, first dose last evening. Has not had prednisone in the past.) Location: Substernal Radiation: No: Neck, Back Worsened by: No: Exertion, Inspiration Associated symptoms: Shortness of air, Feeling faint / dizzy, Palpitations. No: Nausea, Vomiting, General Weakness Similar symptoms before: Has not had sx before Recently seen: Clinic (yesterday for toe pain/Dx gout and started steroids) Review of Systems Constitutional: denies: Fever Nose: denies: Rhinorrhea / runny nose, Congestion Throat: denies: Sore throat Cardiac: reports: Palpitations. denies: Pedal edema, Calf pain Respiratory: reports: Dyspnea. denies: Cough Skin: denies: Rash, Lesions Musculoskeletal: reports: Extremity pain (right great toe for several days) Neurologic: denies: Near syncope PD PAST MEDICAL HISTORY - Past Medical History Cardiovascular: Hypertension Respiratory: None Neuro: None GI: Diverticulitis : Kidney stones Psych: Anxiety, Obsessive compulsive disorder Musculoskeletal: Gout (new diagnosis), Chronic back pain - Past Surgical History Past Surgical History: Yes General: Appendectomy, Bowel surgery Ortho: ACL reconstruction - Present Medications Home Medications: Ambulatory Orders Medication Instructions Recorded Confirmed Amlodipine Besylate/Benazepril 1 each PO 02/06/18 [Lotrel 10-20 mg Capsule] Atenolol 25 mg PO 02/06/18 Gabapentin 600 mg PO 02/06/18 Oxycodone HCl/Acetaminophen 1 each PO Q6H PRN #15 tablet 11/01/18 [Percocet 10-325 mg Tablet] Cyclobenzaprine [Flexeril] 10 mg PO 01/04/19 01/04/19 Hydrocodone/Acetaminophen [[place] 1 each PO Q6H PRN #25 tablet 01/04/19 10-325 Tablet] diazePAM [Valium] 5 - 10 mg PO TID PRN #15 tablet 01/04/19 Oxycodone HCl/Acetaminophen 1 - 2 each PO Q6H PRN #20 tablet 01/17/19 [Percocet 5-325 mg Tablet] Cephalexin [Keflex] 500 mg PO Q6H #40 capsule 04/10/19 Oxycodone HCl/Acetaminophen 1 - 2 each PO Q6H PRN #7 tablet 04/10/19 [Percocet 5-325 mg Tablet] Polyethylene Glycol 3350 [Miralax] 17 gm PO DAILY PRN #1 bottle 04/10/19 Sulfamethox/Trimeth 800/160 1 each PO BID #20 tablet 04/10/19 [Bactrim Ds 800/160] LORazepam [Ativan] 1 mg PO BID PRN #10 tablet 07/18/19 - Allergies Allergies/Adverse Reactions: Allergies Allergy/AdvReac Type Severity Reaction Status Date / Time No Known Drug Allergies Allergy Verified 04/10/19 08:31 - Social History Does the pt smoke?: No Smoking Status: Never smoker Does the pt drink ETOH?: No Does the pt have substance abuse?: No PD ED PE NORMAL - Vitals Vital signs reviewed: Yes - General General: Alert and oriented X 3, Well developed/nourished, Other (seems anxious) - Neck Neck: Supple, no meningeal sign, No adenopathy - Cardiac Cardiac: RRR, No murmur - Respiratory Respiratory: Clear bilaterally - Abdomen Abdomen: Soft, Non tender - Derm Derm: Normal color, Warm and dry - Extremities Extremities: No edema, No calf tenderness / cord, Other (right great toe with tenderness at the MTP area. ) - Neuro Neuro: Alert and oriented X 3, No motor deficit, Normal speech - Psych Psych: No: Normal mood (anxious but pleasant) Results - Vitals Vitals: Vital Signs - 24 hr 07/18/19 07/18/19 07/18/19 16:56 17:23 18:18 Temperature 98.2 C H Heart Rate 86 92 Respiratory 20 19 Rate Blood Pressure 167/83 H 144/74 H Blood Pressure 149/79 H [Left] O2 Saturation 100 100 Oxygen O2 Source Room air - EKG (time done) 17:10 Rate: Rate (enter#) (81) Rhythm: NSR Dexter: Normal Intervals: Normal [place] QRS: Normal Ischemia: Normal ST segments. No: ST elevation c/w ischemia, ST depression - Labs Labs: Laboratory Tests 07/18/19 07/18/19 07/18/19 17:28 17:28 17:28 WBC 7.5 RBC 4.45 L Hgb 12.9 L Hct 39.7 L MCV 89.2 MCH 29.0 MCHC 32.5 RDW 12.5 Plt Count 314 MPV 9.5 Neut # (Auto) 6.5 Lymph # (Auto) 0.7 L [place] # (Auto) 0.1 Eos # (Auto) 0.0 Baso # (Auto) 0.0 Absolute Nucleated RBC 0.00 Nucleated RBC % 0.0 Sodium 139 Potassium 4.1 Chloride 103 Carbon Dioxide 26 Anion Gap 10.0 BUN 14 Creatinine 0.8 Estimated GFR (MDRD) 107 Glucose 123 H Calcium 9.7 Magnesium 2.1 Total Bilirubin 0.7 AST 17 ALT 25 Alkaline Phosphatase 55 Troponin I High Sens 2.5 Total Protein 7.6 Albumin 4.5 Globulin 3.1 Albumin/Globulin Ratio 1.5 Lipase 27 PD MEDICAL DECISION MAKING - ED course Complexity details: considered differential (monitor showing NSR without ectopy. He does have history of anxiety and I think the steroids he started yesterday are precipitating this, likely dose related. ), d/w patient Departure - Departure Disposition: 01 Home, Self Care Clinical Impression: Chest discomfort, Anxiety Steroid side effects Qualifiers: Encounter type: initial encounter Qualified Code(s): T38.0X5A - Adverse effect of glucocorticoids and synthetic analogues, initial encounter Condition: Stable Record reviewed to determine appropriate education?: Yes Instructions: ED Dyspnea Shortness of Breath Follow-Up: ROSA ISELA CAM DO [Primary Care Provider] - Prescriptions: LORazepam [Ativan] 1 mg PO BID PRN #10 tablet PRN Reason: Anxiety Comments: Decrease the steroids to just half a tablet daily and that should decrease your symptoms you are having. You can add Lorazepam twice daily for the next few days as needed as the steroid effect is wearing off. You could also truncates the steroid dosing to just a few days if your gout improves more quickly. Discharge Date/Time: 07/18/19 18:39
[2019-07-18] MEDS ORDERED: LORazepam 2 MG/ML VIAL IM STA (17:21)
[2019-07-18 17:35] LABS: BASOPHILS % (AUTO) 0.3 %; EOSINOPHILS % (AUTO) 0.1 %; HGB - HEMOGLOBIN 12.9 g/dL (14.0-18.0); LYMPHOCYTES # (AUTO) 0.7 10^3/uL (1.5-3.5); LYMPHOCYTES % (AUTO) 9.8 %; MEAN CORPUSCULAR HGB CONC 32.5 g/dL (32.0-36.0); MEAN CORPUSCULAR VOLUME 89.2 fL (80.0-94.0); MEAN PLATELET VOLUME 9.5 fL (7.4-11.4); MONOCYTES # (AUTO) 0.1 10^3/uL (0.0-1.0); MONOCYTES % (AUTO) 1.6 %; NEUTROPHILS # (AUTO) 6.5 10^3/uL (1.5-6.6); NEUTROPHILS % (AUTO) 87.4 %; PLT - PLATELET COUNT 314 10^3/uL (130-450); RED BLOOD COUNT 4.45 10^6/uL (4.70-6.10); RED CELL DISTRIBUTION WIDTH 12.5 % (12.0-15.0); WHITE BLOOD COUNT 7.5 x10^3/uL (4.8-10.8)
[2019-07-18 17:48] LABS: ALBUMIN 4.5 g/dL (3.2-5.5); ALBUMIN/GLOBULIN RATIO 1.5 (1.0-2.2); BILIRUBIN,TOTAL 0.7 mg/dL (0.2-1.0); CALCIUM 9.7 mg/dL (8.5-10.3); CREATININE 0.8 mg/dL (0.6-1.2); MAGNESIUM 2.1 mg/dL (1.7-2.8); TOTAL PROTEIN 7.6 g/dL (6.7-8.2)
[2019-07-18] MEDS ORDERED: LORazepam 1 MG TABLET PO STA (18:14)
[2019-07-18 18:19] VITALS: BP 144/74
== END 2019-07-18 18:39 | disposition home or self-care (01) ==
LOC: ED 16:49
DX: R07.89 Other chest pain (principal); F41.9 Anxiety disorder, unspecified; T38.0X5A Adverse effect of glucocorticoids and synthetic analogues, initial encounter; M79.674 Pain in right toe(s); I10 Essential (primary) hypertension
CPT/HCPCS: 36415; 80053; 83690; 83735; 84484; 85025; 93005; 96372; 99283; 99284; J2060; J8499

== ENCOUNTER 2019-09-04 09:39 | Emergency (ER) | payer OTHER ==
--- NOTE | 2019-09-04 10:27 | ED Physician Documentation ---
PD HPI SKIN - Stated complaint Stated Complaint: BUMP ON BUTTOCKS - Chief complaint Chief Complaint: Wound - History obtained from History obtained from: Patient - History of Present Illness Timing - onset: Yesterday Timing - duration: Days (1) Timing - details: Abrupt onset Pain level now: 10 Location: Other (Anus) Quality / character: Painful, Swelling Associated symptoms: No: Fever, Myalgias, Abd pain, N/V/D, Urinary sx Recently seen: Not recently seen - Additional information Additional information: This is a 39-year-old man who presents with complaints that he thinks he has an other abscess on his buttocks. He had one a couple of months ago that was lanced here in the emergency department and drained. This 1 however is on the opposite side the right anus and closer to the anus than the previous abscess. It just started last night and he thought it was due to the fact that he is been traveling a lot recently walking around a lot but he had his look at it this morning and she thought that it looked a lot like the abscess he had previously and that he should come in and have it evaluated. Patient has not noted any drainage from it. He has not taken any medications at home for the pain. He has not had fever, nausea or vomiting. He is currently on doxycycline for a sinus infection. 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 Review of Systems Constitutional: denies: Fever GI: reports: Other (Painful lump on the right buttocks/anal region). denies: Abdominal Pain, Nausea, Vomiting, Constipation : denies: Dysuria Musculoskeletal: denies: Back pain PD PAST MEDICAL HISTORY - Past Medical History Cardiovascular: Hypertension Respiratory: None Neuro: None Endocrine/Autoimmune: None GI: Diverticulitis : Kidney stones HEENT: None Psych: Anxiety, Obsessive compulsive disorder Musculoskeletal: Gout, Chronic back pain Derm: None - Past Surgical History Past Surgical History: Yes General: Appendectomy, Bowel surgery Ortho: ACL reconstruction - Present Medications Home Medications: Ambulatory Orders Medication Instructions Recorded Confirmed Amlodipine Besylate/Benazepril 1 each PO 02/06/18 [Lotrel 10-20 mg Capsule] Gabapentin 600 mg PO 02/06/18 atenoloL [Atenolol] 25 mg PO 02/06/18 Bupropion HCl [Wellbutrin Xl] 300 mg PO 09/04/19 Oxycodone HCl/Acetaminophen 1 - 2 each PO Q6H PRN #10 tablet 09/04/19 [Percocet 5-325 mg Tablet] Phenylephrine HCl/[place] Butter 1 each RC BID #10 supp.rect 09/04/19 [Preparation H Suppository] - Allergies Allergies/Adverse Reactions: Allergies Allergy/AdvReac Type Severity Reaction Status Date / Time No Known Drug Allergies Allergy Verified 09/04/19 09:48 - Social History Does the pt smoke?: No Smoking Status: Never smoker Does the pt drink ETOH?: Yes Does the pt have substance abuse?: No - Immunizations Immunizations are current?: Yes - POLST Patient has POLST: No PD ED PE NORMAL - Vitals Vital signs reviewed: Yes - General General: Alert and oriented X 3, No acute distress, Well developed/nourished - Rectal Rectal: Other (There is a firm, tender, reddish-purple thrombosed hemorrhoid at the 3 o'clock position at the anal verge. No sign of fluctuance or abscess in the gluteal crease or around the anus.) Results - Vitals Vitals: Vital Signs - 24 hr 09/04/19 09/04/19 09:46 12:30 Temperature 36.5 C Heart Rate 78 83 Respiratory 18 17 Rate Blood Pressure 136/79 H 129/93 H O2 Saturation 99 99 Oxygen O2 Source Room air Procedures - General procedure General procedure: IND of thrombosed hemorrhoid. The 3 o'clock position there was a external thrombosed hemorrhoid. This was prepped with Betadine anesthesia was achieved with 1% lidocaine and an incision was made with 11 blade scalpel with return of clot. The patient tolerated this well. PD MEDICAL DECISION MAKING - ED course Complexity details: d/w patient ED course: Discussed with the patient that this was a thrombosed hemorrhoid and he consented for incision and drainage. I was able to remove quite a bit of clot. He was medicated with 2 mg of Dilaudid and 25 of Phenergan for the procedure. D ischarged with instructions to do sitz baths, prescription for 5 mg Percocet just 10 tablets and follow-up with his primary care provider for reevaluation. Departure - Departure Disposition: 01 Home, Self Care Clinical Impression: Hemorrhoid thrombosis Condition: Good Instructions: ANUSOL Suppositories, ED Hemorrhoids Follow-Up: ROSA ISELA CAM DO [Physician No Access] - Prescriptions: Oxycodone HCl/Acetaminophen [Percocet 5-325 mg Tablet] 1 - 2 each PO Q6H PRN #10 tablet PRN Reason: pain Phenylephrine HCl/[place] Butter [Preparation H Suppository] 1 each RC BID #10 supp.rect Comments: Soak in a sitz bath with Epson salts 2-3 times a day. Use the Preparation H suppositories after each bowel movement and at bedtime after the bleeding has stopped. Use a stool softener if you are using the pain medication. Follow-up with your primary care provider for further management. Discharge Date/Time: 09/04/19 12:35
[2019-09-04] MEDS ORDERED: PROMETHAZINE 25 MG/1 ML VIAL IM STA (10:57)
[2019-09-04] MEDS ORDERED: HYDROmorphone 1 MG/ML CARPUJECT IM STA (10:57)
[2019-09-04] MEDS ORDERED: LIDOCAINE 1% 2 ML VIAL ONE (12:07)
[2019-09-04 12:30] VITALS: BP 129/93
== END 2019-09-04 12:35 | disposition home or self-care (01) ==
LOC: ED 09:39
DX: K64.5 Perianal venous thrombosis (principal); I10 Essential (primary) hypertension
CPT/HCPCS: 46083; 99283; J1170

== ENCOUNTER 2020-04-30 17:20 | Emergency (ER) | payer OTHER ==
[2020-04-30 17:33] VITALS: BP 155/93
[2020-04-30] MEDS ORDERED: HYDROmorphone 1 MG/ML CARPUJECT IM STA (17:46)
[2020-04-30] MEDS ORDERED: predniSONE 20 MG TABLET PO STA (17:46)
[2020-04-30] MEDS ORDERED: KETOROLAC 60 MG/2 ML VIAL IM STA (17:46)
--- NOTE | 2020-04-30 17:49 | ED Physician Documentation ---
PD HPI BACK PAIN - Stated complaint Stated Complaint: BACK PAIN - Chief complaint Chief Complaint: Back Pain - History obtained from History obtained from: Patient - Additional information Additional information: 39-year-old gentleman with chronic low back pain, and pain management. Chopping wood 2 days ago he now has increased his usual pain unresponsive to home narcotics. Has chronic radiation in the left leg and some numbness in the right leg from a prior saphenous nerve surgery. Review of Systems Constitutional: denies: Fever, Chills Cardiac: reports: Reviewed and negative Respiratory: reports: Reviewed and negative PD PAST MEDICAL HISTORY - Past Medical History Past Medical History: Yes Cardiovascular: Hypertension Respiratory: None Neuro: None Endocrine/Autoimmune: None GI: Diverticulitis : Kidney stones HEENT: None Psych: Anxiety, Obsessive compulsive disorder Musculoskeletal: Gout, Chronic back pain Derm: None - Past Surgical History Past Surgical History: Yes General: Appendectomy, Bowel surgery Ortho: ACL reconstruction - Present Medications Home Medications: Ambulatory Orders Medication Instructions Recorded Confirmed atenoloL [Atenolol] 25 mg PO DAILY 02/06/18 Bupropion HCl [Wellbutrin Xl] 300 mg PO DAILY 09/04/19 Dextroamphetamine/Amphetamine 30 mg PO DAILY 04/30/20 04/30/20 [Adderall 30 mg Tablet] Guanfacine HCl [Guanfacine HCl ER] 1 mg PO DAILY 04/30/20 04/30/20 Oxycodone HCl/Acetaminophen 1 each PO TID PRN 04/30/20 04/30/20 [Percocet 10-325 mg Tablet] predniSONE [Deltasone] 60 mg PO DAILY 5 Days #15 tablet 04/30/20 - Allergies Allergies/Adverse Reactions: Allergies Allergy/AdvReac Type Severity Reaction Status Date / Time No Known Drug Allergies Allergy Verified 09/04/19 09:48 - Social History Does the pt smoke?: No Smoking Status: Never smoker Does the pt drink ETOH?: Yes Does the pt have substance abuse?: No - Immunizations Immunizations are current?: Yes - POLST Patient has POLST: No PD ED PE NORMAL - Vitals Vital signs reviewed: Yes - General General: Alert and oriented X 3, Other (Winces with motion, comfortable at rest) - Back Back: No CVA TTP, No spinal TTP - Extremities Extremities: Other (Symmetric lower extremity reflexes throughout, decreased sensation in the right leg below the knee.) - Neuro Neuro: Alert and oriented X 3, Normal speech Results - Vitals Vitals: Vital Signs - 24 hr 04/30/20 17:23 Temperature 37.4 C Heart Rate 71 Respiratory 18 Rate Blood Pressure 155/93 H O2 Saturation 100 Oxygen O2 Source Room air PD MEDICAL DECISION MAKING - ED course ED course: This patient has seemingly uncomplicated musculoskeletal back pain. The patient has no "red flags." Specifically denies IV drug use, fevers, incontinence, saddle anesthesia. Spinal epidural abscess was considered, given that the patient has no fever, is not diabetic, has no spinal tenderness, does not use IV drugs, and has no bilateral neurologic symptoms, the diagnosis of spinal epidural abscess is considered exceedingly unlikely. ED i.e. reviewed, he is on chronic oral narcotics but no evidence of doctor shopping or ER shopping. Departure - Departure Disposition: 01 Home, Self Care Clinical Impression: Acute exacerbation of chronic low back pain Condition: Good Record reviewed to determine appropriate education?: Yes Instructions: ED Low Back Pain Injury Prescriptions: predniSONE [Deltasone] 60 mg PO DAILY 5 Days #15 tablet Comments: Follow-up with your pain management doctor on Thursday as scheduled. Return for new or worsening symptoms. Forms: Activity restrictions
== END 2020-04-30 18:03 | disposition home or self-care (01) ==
LOC: ED 17:20
DX: M54.5 Low back pain (principal); G89.29 Other chronic pain; M79.605 Pain in left leg; R20.0 Anesthesia of skin; I10 Essential (primary) hypertension
CPT/HCPCS: 96372; 99283; J1170; J7512

== ENCOUNTER 2020-05-02 12:18 | Emergency (ER) | payer OTHER ==
--- NOTE | 2020-05-02 13:17 | ED Physician Documentation ---
PD HPI BACK PAIN - Stated complaint Stated Complaint: BACK PX - Chief complaint Chief Complaint: Back Pain - History of Present Illness Location: Lower Quality: Pain, Sharp Associated symptoms: Numbness (right thigh at baseline). No: Fever, Weakness, Incontinent of urine Improves with: Rest Worsened by: Movement, Lifting, Twisting, Palpation Recently seen: Clinic, Emergency Dept - Additional information Additional information: 39-year-old male here for treatment of his chronic low back pain. He has a longstanding history of back pain. 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 He is also scheduled for an injection on 15 May. This gentleman was seen here 2 days ago. He reports that the pain originates across the lower lumbar area and radiates down his left leg. He has a sharp shooting pains from the knee down to the toe. He has an antalgic gait. He has no fevers. No history of injection drug use cancer. He has no saddle anesthesia or urine incontinence. With the last emergency department visit he was prescribed a short course of steroids. He has no relief from them yet. He does have at baseline some right thigh paresthesias from a previous saphenous nerve surgery. This gentleman reports that he is trying to support his and 4 children at home and is hesitant to always takes the oxycodone as it inhibits his ability to work. He is quite honest and and states that he typically has a back flare once or twice a year which typically result in multiple ED visits to bridge him until he is able to get the back injections PD PAST MEDICAL HISTORY - Past Medical History Past Medical History: Yes Cardiovascular: Hypertension Respiratory: None Neuro: None Endocrine/Autoimmune: None GI: Diverticulitis : Kidney stones HEENT: None Psych: Anxiety, Obsessive compulsive disorder Musculoskeletal: Gout, Chronic back pain Derm: None - Past Surgical History Past Surgical History: Yes General: Appendectomy, Bowel surgery Ortho: ACL reconstruction - Present Medications Home Medications: Ambulatory Orders Medication Instructions Recorded Confirmed atenoloL [Atenolol] 25 mg PO DAILY 02/06/18 Bupropion HCl [Wellbutrin Xl] 300 mg PO DAILY 09/04/19 Dextroamphetamine/Amphetamine 30 mg PO DAILY 04/30/20 04/30/20 [Adderall 30 mg Tablet] Guanfacine HCl [Guanfacine HCl ER] 1 mg PO DAILY 04/30/20 04/30/20 Oxycodone HCl/Acetaminophen 1 each PO TID PRN 04/30/20 04/30/20 [Percocet 10-325 mg Tablet] predniSONE [Deltasone] 60 mg PO DAILY 5 Days #15 tablet 04/30/20 - Allergies Allergies/Adverse Reactions: Allergies Allergy/AdvReac Type Severity Reaction Status Date / Time No Known Drug Allergies Allergy Verified 05/02/20 12:31 - Social History Does the pt smoke?: No Smoking Status: Never smoker Does the pt drink ETOH?: Yes Does the pt have substance abuse?: No - Immunizations Immunizations are current?: Yes - POLST Patient has POLST: No PD ED PE EXPANDED - General General: Alert, Well developed/nourished, In Pain - Cardiac Cardiac: Regular Rate, Regular Rhythm, Femoral strong equal, Pedal strong equal, Cap refill < 2 sec. No: Murmur Present - Respiratory Respiratory: Clear to ausultation cl. No: Distress, Labored - Back Back: Other (Reduced range of motion across the lower lumbar spine secondary to pain. No midline spinous process tenderness. patient with an antalgic gait. He is has a 3+ patellar reflex on left leg 2+ right.) - Derm Derm: Normal color - Neuro Neuro: Alert and Oriented X 3, CNII-XII intact - GCS Eye Opening: Spontaneous Motor: Obeys Commands Verbal: Oriented Total: 15 Results - Vitals Vitals: Vital Signs - 24 hr 05/02/20 12:27 Temperature 37.2 C Heart Rate 59 L Respiratory 16 Rate Blood Pressure 154/79 H O2 Saturation 100 Oxygen O2 Source Room air PD MEDICAL DECISION MAKING - ED course Complexity details: reviewed old records, reviewed results, considered differential, d/w patient ED course: 39-year-old male returns emergency department requesting pain medication for his acute on chronic low back pain flare. He is scheduled for spinal injection the first week of May. He does have oxycodone at home but he is hesitant to take it as it interferes with his ability to parent and work. He is requesting a injection of Dilaudid as well as Toradol. We will provide this treatment for him today. He sees his paperhanger and painter tomorrow therefore no new narcotic prescriptions will be issued. He does not have any red flags of back pain. Specifically no fevers or saddle anesthesia. He has no history of injection drug use or diabetes. In addition though the entire lower back is tender to palpate there is no specific spinous process tenderness therefore my suspicion for an epidural abscess is exceedingly low Departure - Departure Disposition: 01 Home, Self Care Clinical Impression: Low back pain Qualifiers: Chronicity: chronic Back pain laterality: left Sciatica presence: with sciatica Sciatica laterality: sciatica of left side Qualified Code(s): M54.42 - Lumbago with sciatica, left side; G89.29 - Other chronic pain Record reviewed to determine appropriate education?: Yes Comments: Robert I wish you luck in your journey. Please continue to see the pain management doctor tomorrow as already scheduled. I do think you would benefit from taking a few days off of work at this time though I understand your difficulty in doing so. Please return to the emergency department if you develop fevers, lose control of your bowel or bladder functions or feel that your pain is not well controlled.
[2020-05-02] MEDS ORDERED: HYDROmorphone 2 MG/ML VIAL IM STA (13:24)
[2020-05-02] MEDS ORDERED: KETOROLAC 60 MG/2 ML VIAL IM STA (13:24)
[2020-05-02 13:59] VITALS: BP 148/80
== END 2020-05-02 13:59 | disposition home or self-care (01) ==
LOC: ED 12:18
DX: M54.42 Lumbago with sciatica, left side (principal); G89.29 Other chronic pain; R26.89 Other abnormalities of gait and mobility; I10 Essential (primary) hypertension
CPT/HCPCS: 96372; 99283; 99284; J1170

== ENCOUNTER 2020-05-05 14:40 | Emergency (ER) | payer OTHER ==
[2020-05-05] MEDS ORDERED: KETOROLAC 60 MG/2 ML VIAL IM STA (15:06)
[2020-05-05] MEDS ORDERED: HYDROmorphone 1 MG/ML CARPUJECT IM STA (15:06)
--- NOTE | 2020-05-05 15:07 | ED Physician Documentation ---
PD HPI BACK PAIN - Stated complaint Stated Complaint: BACK PX - Chief complaint Chief Complaint: Back Pain - History obtained from History obtained from: Patient - Additional information Additional information: 39-year-old gentleman with chronic back pain, maintained on long and short acting oxycodone which she has at home. Over the last week his back pain has flared. It is in the usual spot just worse than normal. No saddle anesthesia or incontinence. No fevers or drug use. Has an appointment for an epidural steroid injection, it was on 16 May but now is only on the second. Shares with me that he plans to change pain management physicians but still has routine medications at home. Review of Systems Constitutional: denies: Fever, Chills GI: denies: Abdominal Pain, Nausea, Vomiting : reports: Reviewed and negative PD PAST MEDICAL HISTORY - Past Medical History Cardiovascular: Hypertension Respiratory: None Neuro: None Endocrine/Autoimmune: None GI: Diverticulitis : Kidney stones HEENT: None Psych: Anxiety, Obsessive compulsive disorder Musculoskeletal: Gout, Chronic back pain Derm: None - Past Surgical History Past Surgical History: Yes General: Appendectomy, Bowel surgery Ortho: ACL reconstruction - Present Medications Home Medications: Ambulatory Orders Medication Instructions Recorded Confirmed atenoloL [Atenolol] 25 mg PO DAILY 02/06/18 Bupropion HCl [Wellbutrin Xl] 300 mg PO DAILY 09/04/19 Dextroamphetamine/Amphetamine 30 mg PO DAILY 04/30/20 04/30/20 [Adderall 30 mg Tablet] Guanfacine HCl [Guanfacine HCl ER] 1 mg PO DAILY 04/30/20 04/30/20 Oxycodone HCl/Acetaminophen 1 each PO TID PRN 04/30/20 04/30/20 [Percocet 10-325 mg Tablet] predniSONE [Deltasone] 60 mg PO DAILY 5 Days #15 tablet 04/30/20 - Allergies Allergies/Adverse Reactions: Allergies Allergy/AdvReac Type Severity Reaction Status Date / Time No Known Drug Allergies Allergy Verified 05/02/20 12:31 - Social History Does the pt smoke?: No Smoking Status: Never smoker Does the pt drink ETOH?: Yes Does the pt have substance abuse?: No - Immunizations Immunizations are current?: Yes - POLST Patient has POLST: No PD ED PE NORMAL - Vitals Vital signs reviewed: Yes - General General: Alert and oriented X 3, Other (Appears uncomfortable with motion but comfortable at rest.) - Extremities Extremities: Other (The patient has equal and normal Achilles and patellar reflexes bilaterally. Normal sensation in all areas of the legs. Patient denies saddle anesthesia. Normal strength in flexion-extension at the ankles, knees, and flexion of the hips.) - Neuro Neuro: Alert and oriented X 3, Normal speech Results - Vitals Vitals: Vital Signs - 24 hr 05/05/20 14:50 Temperature 36.5 C Heart Rate 76 Respiratory 22 Rate Blood Pressure 139/82 H O2 Saturation 98 Oxygen O2 Source Room air PD MEDICAL DECISION MAKING - ED course ED course: 39-year-old gentleman with recurrent back pain, exacerbation of same, no "red flags" for serious illness. Administered Toradol and Dilaudid IM. Subsequently stated he was feeling worse. Discussed with him that further pain management especially narcotics need to come from his pain management doctor and there would be no further injections of narcotics or prescriptions of narcotics without objective acute injury/illness. Departure - Departure Disposition: 01 Home, Self Care Clinical Impression: Acute exacerbation of chronic low back pain Condition: Good Record reviewed to determine appropriate education?: Yes Instructions: ED Chronic Pain Management Comments: Continue current medications, follow-up with your pain management and primary care physician for ongoing treatment. Return as needed for emergency symptoms. Discussed with him that further pain management especially narcotics need to come from his pain management doctor and there would be no further injections of narcotics or prescriptions of narcotics without objective acute injury/illness.
[2020-05-05 15:45] VITALS: BP 115/71
== END 2020-05-05 15:43 | disposition home or self-care (01) ==
LOC: ED 14:40
DX: M54.5 Low back pain (principal); G89.29 Other chronic pain; I10 Essential (primary) hypertension
CPT/HCPCS: 96372; 99283; J1170

== ENCOUNTER 2022-06-03 13:40 | Outpatient (CLI) | payer OTHER ==
--- NOTE | 2022-06-03 16:31 | MRI Report ---
PROCEDURE: Lumbar Spine W/O INDICATIONS: LOW BACK PAIN TECHNIQUE: Noncontrast sagittal T1 spin echo and T2 fast echo, sagittal STIR, axial T1 and T2 fast spin echo thr ough the lumbar spine. In cases with scoliosis, additional coronal T2 fast spin echo may be performe d. COMPARISON: None. FINDINGS: Image quality: Excellent. Alignment and Curvature: There is normal bony alignment. Bone Marrow: Bilateral L5 pars defects noted Spinal Cord: Conus medullaris terminates at the L1 level. Visualized cord demonstrates normal signa l and size. Paraspinous Soft Tissues: No paravertebral masses. T12-L1: Normal in appearance. L1-L2: Normal in appearance. L2-L3: Normal in appearance. L3-L4: Mild disc space narrowing and circumferential disc bulge results in mild central stenosis. N o foraminal stenosis L4-L5: Mild disc narrowing and hypertrophic facet joints without central stenosis or foraminal sten osis. L5-S1: Disc height is maintained. Focal high intensity zone noted in the posterior annulus associat ed with mild circumferential disc bulge. No central or foraminal stenosis. IMPRESSION: 1. 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 2. L5-S1 annular fissure or tear without significant central or foraminal stenosis Reviewed by: Heriberto Bright MD on 06/03/2022 3:29 PM ERIN Approved by: Heriberto Bright MD on 06/03/2022 3:29 PM ERIN Station ID: [id number]
== END 2022-06-03 13:41 | disposition home or self-care (01) ==
LOC: DI 13:40
PROVIDERS: ATTEND Family Medicine
DX: M47.816 Spondylosis without myelopathy or radiculopathy, lumbar region (principal); M51.37 Other intervertebral disc degeneration, lumbosacral region

== ENCOUNTER 2022-06-03 13:44 | Outpatient (CLI) | payer OTHER ==
--- NOTE | 2022-06-04 23:29 | MRI Report ---
PROCEDURE: Knee RT W/O INDICATIONS: RECURRENT KNEE DISLOCATION TECHNIQUE: Noncontrast sagittal PD fast spin echo and T2 fast spin echo with fat saturation, sagittal 3-D gradie nt sequence with fat saturation; coronal T1 spin echo and PD fast spin echo with fat saturation, and axial PD fast spin echo with fat saturation through the knee. COMPARISON: None. FINDINGS: Image quality: Excellent. Menisci: Complex oblique tear involving posterior horn of medial meniscus is seen extending to both s uperior and inferior articulating surfaces. There is no evidence of focal lateral meniscal tear. The meniscal root ligaments appear intact. Cruciate ligaments: Patient is status post prior ACL reconstruction. ACL graft is intact. Posterior c ruciate ligament is intact. Medial structures: There is low-grade MCL sprain. The posterior oblique ligament, semimembranosus ten don insertions, and oblique popliteal ligament, and meniscocapsular junction appear intact. Visualiz ed portions of the pes anserinus tendons appear normal. No abnormal bursal fluid. Lateral structures: The lateral collateral ligament, long and short heads of the biceps femoris tend on appear intact. The popliteus tendon appears normal; the popliteofibular ligament appears intact. Iliotibial band appears normal. Anterior structures: Mild edema along anterior aspect of patella is seen with small amount of fluid d istending prepatellar bursa. The quadriceps and patellar tendons appear intact. Patellar alignment i s normal. No femoral trochlear dysplasia or ventral trochlear prominence. No edema in the infrapate llar fat pad. Bones and cartilage: Postsurgical changes are seen and lateral femoral condyle and medial portion of proximal tibia. There is widening of the tibial tunnel. Small amount of adjacent fluid. No definite t endinosis is seen. Femoral condyle is within normal limits. Mild tricompartmental osteoarthritis and low-grade chondromalacia is seen. Joint space: There is small amount of joint fluid. No Pate's cyst. Normal appearing synovial plic ae are incidentally noted. IMPRESSION: 1. Prior ACL repair with postsurgical changes. ACL graft is intact. Slight widening of tibial condyle with adjacent fluid is seen. No definite tendinosis. PCL is intact. 2. Oblique tear involving posterior horn of medial meniscus extending to both superior and inferior a rticulating surfaces. No evidence of focal lateral meniscal tear. 3. Low-grade proximal MCL sprain. 4. Mild edema and small amount of fluid along anterior aspect of patella, concerning for prepatellar bursitis. 5. Mild tricompartmental osteoarthritis and low-grade chondromalacia. Small amount of joint fluid, no gross loose bodies. Reviewed by: Allen Byrnes MD on 06/04/2022 11:35 PM PDT Approved by: Allen Byrnes MD on 06/04/2022 11:35 PM PDT Station ID: [id number]
== END 2022-06-03 13:45 | disposition home or self-care (01) ==
LOC: DI 13:44
PROVIDERS: ATTEND Family Medicine
DX: M24.461 Recurrent dislocation, right knee (principal); S83.241A Other tear of medial meniscus, current injury, right knee, initial encounter; S83.411A Sprain of medial collateral ligament of right knee, initial encounter; M25.461 Effusion, right knee; M17.11 Unilateral primary osteoarthritis, right knee; M94.261 Chondromalacia, right knee; M47.816 Spondylosis without myelopathy or radiculopathy, lumbar region; M51.37 Other intervertebral disc degeneration, lumbosacral region